=== PATIENT | male | born 1965 | race Caucasian/White ===

== ENCOUNTER → 2017-02-22 08:45 | Outpatient (CLI) | payer BC | END | disposition home or self-care (01) | LOC: D.MRI 08:45 | DX: M25.561 Pain in right knee (principal); M25.461 Effusion, right knee ==

== ENCOUNTER → 2017-04-17 12:24 | Outpatient (CLI) | payer BC | END | disposition home or self-care (01) | LOC: D.US 12:24 | DX: R60.0 Localized edema (principal); M79.604 Pain in right leg ==